=== PATIENT | female | born 1960 | race Caucasian/White ===

== ENCOUNTER 2017-10-13 19:20 | Emergency (ER) | payer OTHER ==
[2017-10-13 19:27] VITALS: BP 143/80; PULSE 60; TEMP 97.3; BMI 32.5
--- NOTE | 2017-10-13 19:31 | PDOC ---
History of Present Illness - General History Source: Patient Exam Limitations: No Limitations - History of Present Illness Initial Comments: 10/13/17 21:25 Patient is a 57 year old female with no significant past medical history who presents to the ED with left thumb pain, s/p laceration that occured 30 minutes prior to ED arrival. Patient reports cutting vegetables at home when her hand slipped she accidently cut her left thumb. She reports feeling immediate pain following the incident. Patient states she covered the wound with a napkin and came into the ED for evaluation. She reports being concerned about the laceration due to the fact that she was able to look into the laceration. PAtient states she doesn't know when her last tetanus shot was. Denies chest pain, SOB. Denies fevers, chills. Denies numbness, tingles. Denies any other symptoms. Allergies: None Social history: Lives with . No smoking. No alcohol. No illicit drugs. Surgical history: None PMD: None Adult ROS General: No fevers or chills, no weakness, no weight loss HEENT: No change in vision. No sore throat, No ear pain Cardiovascular: No chest pain or shortness of breath Respiratory:No cough, or wheezing. Gastrointestinal: No nausea, vomiting, diarrhea or constipation, No rectal bleeding Genitourinary: No dysuria, hematuria, or frequency Musculoskeletal: +Left thumb laceration. No joint or muscle pain or swelling Neurologic: No headache, vertigo, dizziness or loss of consciousness Psychiatric: No depression Skin: No rashes or easy bruising Endocrine: No increased thirst or abnormal weight change Allergic: No skin or latex allergy All other systems reviewed and normal Basic PE GENERAL: The patient is awake, alert, and fully oriented, in no acute distress. HEAD: Normal with no signs of trauma. EYES: Pupils equal, round and reactive to light, extraocular movements intact, sclera anicteric, conjunctiva clear. EXTREMITIES: +3mm superficial laceration on the Medial tip of the left thumb. No active bleeding. Neurovascularly intact. Normal range of motion, no edema. NEUROLOGICAL: Normal speech, normal gait. PSYCH: Normal mood, normal affect. SKIN: Warm, Dry, normal turgor, no rashes or lesions noted. <Austin Valentine - Last Filed: 10/13/17 21:32> - General History Source: Patient Exam Limitations: No Limitations - History of Present Illness Initial Comments: A portion of this note was documented by scribe services under my direction. I have reviewed the details of the note, within reason, and agree with the documentation. The case summary and management plan written by me. Procedure note: Laceration repair Laceration was cleaned and closed with Dermabond patient tolerated well Assessment and plan: This is a 57-year-old female who had a very small superficial laceration just finished bilateral no to her left thumb. Laceration was closed with Dermabond and patient was discharged. <Riana Reyes I - Last Filed: 10/13/17 21:33> - General Chief Complaint: Laceration Stated Complaint: LEFT THUMB LACERATION Time Seen by Provider: 10/13/17 19:22 Past History <Austin Valentine - Last Filed: 10/13/17 21:32> - Past Medical History COPD: No Psychiatric Problems: Yes (THYROID) Thyroid Disease: Yes - Suicide/Smoking/Psychosocial Hx Smoking Status: No Smoking History: Never smoked Have you smoked in the past 12 months: No Number of Cigarettes Smoked Daily: 0 Hx Alcohol Use: (occasional) <Riana Reyes I - Last Filed: 10/13/17 21:33> - Past Medical History Allergies/Adverse Reactions: Allergies Allergy/AdvReac Type Severity Reaction Status Date / Time No Known Allergies Allergy Verified 10/13/17 19:23 Home Medications: Ambulatory Orders Bupropion HCl [Wellbutrin -] 150 mg PO DAILY 10/13/17 Levothyroxine Sodium [Synthroid] 137 mcg PO DAILY 10/13/17 Review of Systems - Review of Systems Able to Perform ROS?: Yes All Other Systems: Reviewed and Negative <Austin Valentine - Last Filed: 10/13/17 21:32> *Physical Exam - Vital Signs Last Vital Signs Temp Pulse Resp BP Pulse Ox 97.3 F L 60 18 143/80 98 10/13/17 19:20 10/13/17 19:20 10/13/17 19:20 10/13/17 19:20 10/13/17 19:20 <Austin Valentine - Last Filed: 10/13/17 21:32> - Vital Signs Last Vital Signs Temp Pulse Resp BP Pulse Ox 97.3 F L 60 18 143/80 98 10/13/17 19:20 10/13/17 19:20 10/13/17 19:20 10/13/17 19:20 10/13/17 19:20 <Riana Reyes I - Last Filed: 10/13/17 21:33> ED Treatment Course - Medications Given in the ED: ED Medications Discontinued Medications Generic Name Dose Route Start Last Admin Trade Name Julio PRN Reason Stop Dose Admin Diphtheria/Tetanus/Acell Pertussis 0.5 ml 10/13/17 19:36 10/13/17 19:55 Boostrix - IM 10/13/17 19:37 0.5 ml ONCE ONE Administration <Austin Valentine - Last Filed: 10/13/17 21:32> *DC/Admit/Observation/Transfer - Attestations Scribe Attestion: 10/13/17 21:26 Documentation prepared by Austin Valentine, acting as medical records tech for Riana Reyes MD/DO. <Austin Valentine - Last Filed: 10/13/17 21:32> - Discharge Dispostion Admit: No <Riana Reyes I - Last Filed: 10/13/17 21:33> Diagnosis at time of Disposition: Finger laceration Qualifiers: Encounter type: initial encounter Finger: thumb Damage to nail status: without damage Foreign body presence: without foreign body Laterality: left Qualified Code(s): S61.012A - Laceration without foreign body of left thumb without damage to nail, initial encounter - Discharge Dispostion Disposition: HOME Condition at time of disposition: Stable - Patient Instructions Printed Discharge Instructions: DI for Laceration Repair With Dermabond Additional Instructions: Read over and follow Dermabond instructions. The villarreal points are no petroleum based products on the glue as it will cause it to come off early. Otherwise keep it dry for 72 hours after that you can get it wet. The glue will come off on its own in about 4-5 days.. Return to the emergency department immediately with ANY new, persistent or worsening symptoms. Continue any medications as previously prescribed by your physician. You should follow up with your primary doctor as soon as possible regarding today's emergency department visit. . Please make sure your doctor reviews the results of your emergency evaluation. Thank you for coming to the Emergency Department today for your care. It was a pleasure to see you today. Please note that your evaluation is INCOMPLETE until you follow-up with your doctor.
[2017-10-13] MEDS ORDERED: DIPHTH,PERTUSS(ACELL),TET 0.5 ML DISP.SYRIN IM ONE (19:36)
== END 2017-10-13 20:01 | disposition home or self-care (01) ==
LOC: FER 19:20
PROC: 3E0234Z Introduction of Serum, Toxoid and Vaccine into Muscle, Percutaneous Approach (ICD-10-PCS; principal; 2017-10-13)
PROC: 0HQGXZZ Repair Left Hand Skin, External Approach (ICD-10-PCS; 2017-10-13)
DX: S61.012A Laceration without foreign body of left thumb without damage to nail, initial encounter (principal); W26.0XXA Contact with knife, initial encounter; Y93.89 Activity, other specified; Y92.000 Kitchen of unspecified non-institutional (private) residence as the place of occurrence of the external cause
CPT/HCPCS: 90715; 99283-25